=== PATIENT | male | born 2000 | race Caucasian/White ===

== ENCOUNTER 2021-08-09 19:01 | Emergency (ER) | payer BC, SELFPAY ==
--- NOTE | ~2021-08-09 | XR_ITS ---
EXAMINATION: XR CLAVICLE, LEFT CLINICAL INFORMATION: History of shoulder dislocation. Evaluate for clavicular fracture. COMPARISON: None. TECHNIQUE: Single view of the left clavicle. FINDINGS: Comminuted, displaced and angulated distal clavicular fracture. The distal fractured fragment is displaced inferiorly by approximately 1.8 cm. The acromioclavicular joint appears preserved, although evaluation is suboptimal in the absence of additional views. No other fractures. The humeral head remains well-seated in the glenoid. Surrounding soft tissue thickening/hematoma around the fracture site. XR/XR clavicle LT IMPRESSION: Comminuted, angulated and displaced distal left clavicular fracture.
[2021-08-09 19:08] VITALS: BP 130/70; PULSE 89; RESP 16; TEMP 36.6; O2SAT 100; BMI 27.1
--- NOTE | 2021-08-09 19:34 | ED.EXTPRO ---
HPI - Extremity Problem General Chief complaint: Extremity Injury, Upper Stated complaint: ?broken left clavicle Time Seen by Provider: 08/09/21 19:09 Source: patient Mode of arrival: ambulatory Limitations: no limitations History of Present Illness HPI Narrative: 21-year-old male presents to ED for left clavicle pain. Patient states he was snow boarding and fell unto the snow unto his left shoulder. patient states he had his helmet on. patient denies flying off from snow board or hitting a tree. patient staes snowboard got caught on snow and he tripped over and fell directly unto his left shoulder. Patient states his feet did not come off the snow board. patient denies flying into the air. Related Data Previous Rx's Medication Instructions Recorded naproxen 500 mg tablet 500 mg PO BID PRN 10 Days #20 tab 08/09/21 Allergies Allergy/AdvReac Type Severity Reaction Status Date / Time No Known Allergies Allergy Verified 08/09/21 19:16 Review of Systems Review of Systems: Left clavicle pain/fracture? Yes all other systems are reviewed and are negative [facility] Past Medical History Medical History (Updated 08/10/21 @ 00:00 by Background Daemon) No known health problems Social History Social History Advance Directives: No Physical Exam Vital Signs: Vital Signs: Last Vital Signs Temp 97.8 F 08/09/21 19:08 Pulse 89 08/09/21 19:08 Resp 16 08/09/21 19:08 BP 130/70 08/09/21 19:08 Pulse Ox 100 08/09/21 19:08 BMI result Body Mass Index 27.1 Const: General: cooperative, healthy appearing, comfortable, no acute distress, well developed, alert, awake and Physically active Orientation/consciousness: patient oriented x3 HENMT: Head: Yes normal to inspection, Yes No palpable skull fracture present, Yes normocephalic, Yes atraumatic and No abrasion Ears: hearing grossly normal bilaterally, external ears normal, TM's normal bilaterally, EAC's normal, mastoids normal and no periauricular adenopathy Eyes: General: appearance normal, both eyes and all related structures Neck: Neck: Yes normal visual inspection, Yes full ROM, Yes no lymphadenopathy, Yes no meningeal signs, Yes trachea midline, Yes supple, No anterior neck swelling and No tender Chest: Other: negative for ecchymosis/crepitus. Chest palpation & inspection: normal inspection of the chest and normal palpation of entire chest wall Resp: Effort & Inspection: normal respiratory effort and able to speak in complete sentences Auscultation: clear to auscultation bilaterally Cardio: Jugular venous distension: no JVD Heart sounds: S1 normal heart sound present and S2 normal heart sound present GI: Inspection: Yes normal to inspection and No abdominal wall ecchymosis Palpation (GI): Soft to palpation, not firm, nontender, no guarding and not rigid : General: No CVA tenderness and Yes no CVA tenderness Back/Spine/Pelvis: Back: no CVA tenderness, No CVA tenderness and No back tenderness Skin: General skin exam: no rashes or lesions noted and elasticity normal Neuro: General: patient oriented x3, gait normal, no meningeal signs and CN's II-XI intact bilaterally Cranial nerves: Yes CN's II-XII intact bilaterally Extrem: General: Yes normal to inspection and Yes full ROM Shoulder/upper arm images: 1. Tenderness on palpation of clavicle. Patient has complete range of motion of shoulder but with pain. left upper extrremity motor, neuro, and vascular exam is intact. Psych: Appearance: grossly normal, well kempt and not disheveled Course Course Course Narrative: Sent left upper extremity clavicle xray Reevaluation(s) Reevaluation #1: Shoulder on x-ray looks normal. Imaging shows clavicle fracture near AC joint. Physical exam negative for tenting. Not able to get official read from radiologist due to issues with x-ray department. IT working on imaging. Patient inform our discharge him and calling with official report but presently looks like clavicle fracture. Negative for any shoulder fracture or deformity. Time: 21:39 Reevaluation #2: Official report came back. Patient was still in the ED. Patient was evaluated with Dr. Trotter and we both agreed there was no tenting. Spoke with Orthopedic transformation coach JOSUE Orona and she was informed of patient history, physical exam and picture of xray with xry report. She states patient is safe for discharge and could follow up with Orthopedic clinc this modnay MDM - Extremity (Nontraumatic) Medical Records Medical records narrative: clavicle fracture Discharge Plan Discharge Clinical Impression: Clavicle fracture Patient Disposition: Home, Self-Care Instructions: Clavicle Fracture (ED) Additional Instructions: Please follow-up with orthopedic surgeon Dr. Patel. Return to ED for worsening left upper extremity pain, swelling, redness, bluish black discoloration, hotness, coldness, chest pain, shortness of breath, or any other concerning symptoms. Prescriptions: New naproxen 500 mg tablet 500 mg PO BID PRN (Reason: pain) 10 Days Qty: 20 RF: 0 Referrals: Woody Patel MD [Physician] - 2 days (Left clavicle fracture) Stand Alone Forms: Work/School Release Interventions: ED Discharge Assessment Last Done: 08/09/21 22:11 Discharge Date/Time: 08/09/21 22:12 Print Language: [place]
[2021-08-09] MEDS: Ibuprofen 400 MG TABLET PO (20:24)
--- NOTE | 2021-08-09 20:25 | PC.NURSE ---
administered 400mg of Ibuprofen instead of 800mg because patient stated he had taken 400mg at 1800 . Provider aware and changed orders.
== END 2021-08-09 22:12 | disposition home or self-care (01) ==
PROVIDERS: Emergency Provider Emergency Medicine Emergency Medical Services
DX: S42.032A Displaced fracture of lateral end of left clavicle, initial encounter for closed fracture (principal); W17.81XA Fall down embankment (hill), initial encounter; Y93.23 Activity, snow (alpine) (downhill) skiing, snowboarding, sledding, tobogganing and snow tubing; Y92.828 Other wilderness area as the place of occurrence of the external cause; Y99.8 Other external cause status
CPT/HCPCS: 73000; 99283; 99284

== ENCOUNTER → 2021-08-11 10:01 | Outpatient (BNVA) | payer BC, SELFPAY | PROVIDERS: PCP Nurse Practitioner Family; Visit Provider Physician Assistant ==